=== PATIENT | male | born 1980 | race Caucasian/White ===

== ENCOUNTER → 2016-08-15 | Outpatient (CLI) | payer MEDICAID ==
--- NOTE | ~2016-08-15 | US6 ---
[facility]. [facility] A Service of [facility] & [facility] RADIOLOGY TEXT RESULTS PATIENT: BERONICA GARCIA LOCATION: SG : 82 UNIT #: [id number] AGE: [address]: Dayanna Ortega MD SEX: M ORDER DR: [id number] [place] [id number] P MR#: [id number] Acc #: [id number] NAME: BERONICA GARCIA : 1980 SEX: M STUDY DATE/TIME: 08/15/2016 8:25 UNIT: SGUS ROOM: STUDY DESCRIPTION: US Abdominal Limited Attending Physician: Dayanna Ortega M.D. Referring Physician: Dayanna Ortega M.D. Ordering Physician: Dayanna Ortega M.D. Primary Care Physician: Primary Care Physician No MEDICAL IMAGING REPORT This report is preliminary unless electronic signature is present. AM Right upper quadrant ultrasound 08/15/2016 HISTORY Right upper quadrant abdominal pain for 5 months. FINDINGS The liver is homogeneous in echotexture and demonstrates no cystic or solid mass lesions. The intra and extrahepatic bile ducts are not dilated. The gallbladder contains small shadowing gallstones but there is no evidence of gallbladder wall thickening or pericholecystic fluid. The common duct measures 3 mm. The pancreas and right kidney are normal. IMPRESSION Cholelithiasis Dictated by... Manuel Esteban M.D. THIS IS AN ELECTRONICALLY VERIFIED REPORT Manuel Esteban M.D. at 08/16/2016 8:00 AM LEN/kristina TD: 08/15/2016 10:44 JOB #: [id number] MEDICAL IMAGING REPORT Page 1 of 1
== END | disposition home or self-care (01) ==
LOC: SGUS 08:00
DX: R10.11 Right upper quadrant pain (principal); K80.20 Calculus of gallbladder without cholecystitis without obstruction
CPT/HCPCS: 76705